=== PATIENT | female | born 1935 | race Caucasian/White ===

== ENCOUNTER → 2018-08-05 | Outpatient (CLI) | payer MEDICARE ==
--- NOTE | 2018-08-05 12:59 | PCVCIMAG ---
APPROVED REPORT Indications Stenosis Risk Factors Hypertension: Hyperlipidemia Doppler Spectral Velocity Analysis PSV / EDVPSV / EDV ECA (R) 68 / 6 cm/sECA (L) 81 / 12 cm/s dICA (R) 70 / 22 cm/sdICA (L) 73 / 26 cm/s Gaby (R) 68 / 21 cm/smICA (L) 68 / 23 cm/s pICA (R) 78 / 25 cm/spICA (L) 91 / 17 cm/s Bulb (R) 61 / 19 cm/sBulb (L) 57 / 17 cm/s dCCA (R) 62 / 14 cm/sdCCA (L) 68 / 18 cm/s mCCA (R) 66 / 13 cm/smCCA (L) 61 / 16 cm/s Vert (R) 49 / 14 cm/sVert (L) 51 / 16 cm/s ICA/CCA 1.34 ICA/CCA 1.18 Basic Measurements Blood Pressure: Pulses: Right Left RightLeft Brachial(Sitting) 122/37kbHj494/72mmHgTemporal Real Time B-Mode Imaging Vert. (R)AntegradeVert. (L)Antegrade Findings The right carotid bulb has moderate calcified plaque. The right proximal internal carotid artery shows <40% stenosis. The right common carotid artery shows no significant stenosis. The right external carotid artery shows no significant stenosis. The left carotid bulb has moderate heterogeneous plaque. The left proximal internal carotid artery shows <40% stenosis. The left common carotid artery shows no significant stenosis. The left external carotid artery shows no significant stenosis. Conclusion 1. Right internal carotid artery stenosis (<40%) 2. Left internal carotid artery stenosis (<40%) 3. Antegrade vertebral flow
--- NOTE | 2018-08-05 15:53 | PCVCIMAG ---
APPROVED REPORT Study performed: 08/05/2018 13:59:02 EXAM: Comprehensive 2D, Doppler, and color-flow Echocardiogram Patient Location: Echo lab Status: routine BSA: 1.82 HR: 66 bpmBP: 128/80 mmHg Rhythm: NSR Other Information Study Quality: Technically Limited Risk Factors: Cardiac Risk Factors: HTN, Hyperlipidemia, DM Indications CAD CABG, Hyperlipidemia, Renal failure, Colon cancer 2D Dimensions IVSd: 10.13 (7-11mm)LVOT Diam: 20.48 (18-24mm) LVDd: 40.40 mm PWd: 9.97 (7-11mm)Ascending Ao: 41.42 (22-36mm) LVDs: 29.60 (25-40mm) Left Atrium: 40.52 (27-40mm) Aortic Root: 33.38 mm Volumes Left Atrial Volume (Systole) Single Plane 4CH: 17.98 mLSingle Plane 2CH: 14.66 mL LA ESV Index: 10.00 mL/m2 Aortic Valve AoV Peak Lew.: 1.59 m/s AO Peak Gr.: 8.33 mmHgLVOT Max P.19 mmHg AO Mean Gr.: 5.67 mmHgLVOT Mean P.57 mmHg AO V2 Mean: 1.12 m/sLVOT Max V: 1.03 m/s AO V2 VTI: 30.68 cm KASSIDY (VTI): 2.15 me9PWLL V1 VTI: 20.06 cm KASSIDY Vmax: 2.13 cm2 AI Vmax: 5.14 m/s AI [place]: 3.93 m/s2 AI PHT: 378.90 ms Mitral Valve E/A Ratio: 0.9 MV Decel. Time: 238.18 ms MV E Max Lew.: 0.51 m/s MV A Lew.: 0.57 m/s MV PHT: 69.07 ms IVRT: 134.95 ms TDI E/Lateral E': 8.50E/Medial E': 5.67 Medial E' Lew.: 0.09 m/s Lateral E' Lew.: 0.06 m/s Pulmonary Valve PV Peak Gr.: 3.97 mmHg Left Ventricle The left ventricle is normal size. There is normal LV segmental wall motion. There is normal left ventricular wall thickness. Left ventricular systolic function is normal. The left ventricular ejection fraction is within the normal range. LVEF is 50%. Grade I - abnormal relaxation pattern. Right Ventricle The right ventricle is normal size. The right ventricular systolic function is normal. Atria The left atrium size is normal. The right atrium size is normal. Aortic Valve The aortic valve is moderately calcified. Trace to mild aortic regurgitation. There is no aortic valvular stenosis. Mitral Valve Mild-moderate mitral annular calcification There is no mitral valve regurgitation noted. No evidence of mitral valve stenosis. Tricuspid Valve The tricuspid valve is normal in structure. There is no tricuspid valve regurgitation noted. Pulmonic Valve The pulmonary valve is normal in structure. There is no pulmonic valvular regurgitation. Great Vessels The aortic root is normal in size. The ascending aorta is borderline dilated measuring 4.1cm. IVC is normal in size and collapses >50% with inspiration. Pericardium There is no pericardial effusion. <Conclusion> Left ventricular systolic function is normal. There is normal LV segmental wall motion. LVEF is 50%. Mild diastolic dysfunction The aortic valve is moderately calcified. Trace to mild aortic regurgitation, no stenosis Mild-moderate mitral annular calcification. No mitral valve regurgitation Pulmonary artery pressure could not be reliably ascertained There is no pericardial effusion.
== END | disposition home or self-care (01) ==
LOC: PCVCIMAG 12:20
PROVIDERS: ATTEND Internal Medicine
DX: I65.23 Occlusion and stenosis of bilateral carotid arteries (principal); I25.10 Atherosclerotic heart disease of native coronary artery without angina pectoris; I12.9 Hypertensive chronic kidney disease with stage 1 through stage 4 chronic kidney disease, or unspecified chronic kidney disease; E11.22 Type 2 diabetes mellitus with diabetic chronic kidney disease; N18.3 Chronic kidney disease, stage 3 (moderate); I25.5 Ischemic cardiomyopathy; E78.5 Hyperlipidemia, unspecified; I42.9 Cardiomyopathy, unspecified; Z79.82 Long term (current) use of aspirin; Z79.4 Long term (current) use of insulin; Z79.899 Other long term (current) drug therapy
CPT/HCPCS: 80061; 93005; 93306; 93880; G0463

== ENCOUNTER → 2019-03-17 | Outpatient (CLI) | payer MEDICARE ==
[~2019-03-17] MED LIST: REGADENOSON 0.4 MG/5 ML DISP.SYRIN. IV ONE
--- NOTE | 2019-03-20 07:26 | PCVCIMAG ---
APPROVED REPORT Imaging Protocol: Rest Tc-99m/Stress Tc-99m 1 day Study performed: 03/17/2019 10:51:38 Indication: CAD, ICM Patient Location: Out-Patient Stress Nurse: Dara Masterson RN, TANYA Avila Tech:Zay KenIVONNE Ht: 5 ft 4 in Wt: 169 lbs BSA: 1.82 m2 HR: 70 bpm BP: 193/84 mmHg BMI: 29.0 Rhythm: Sinus Rhythm Medical History Medical History: Age, Hyperlipidemia, HTN, CVD, CAD, Dm Insulin Medications: ASA, Lantus, Lovastatin, Metoprolol, Demedex Allergies: No known drug allergies Previous Cardiac Procedures: CABG Exercise History: Sedentary Meds Held (24 hrs): Metoprolol Resting Data Rest SPECT myocardial perfusion imaging was performed in supine position 45 minutes following the intravenous injection of 10 mCi of Tc-99m Sestamibi. Time of rest injection: 1030 Date: 03/17/2019 Administration Route: IV Administration Site: Right Hand Pharmacologic Stress Pharmacologic stress test was performed by injecting Regadenoson 0.4 mg IV push over 10-15 seconds immediately followed by the intravenous injection of 32.2 mCi of Tc-99m Sestamibi. Time of stress injection: 1145 Date: 03/17/2019 Administration Route: IV Administration Site: Right Hand Gated Stress SPECT was performed 45 minutes after stress injection. The images were gated to evaluate regional wall motion and calculate left ventricular ejection fraction. Stress Test Details Stress Test: Pharmacologic stress testing performed using 0.4 mg of regadenoson per 5 mL given IV over 10 seconds. HRMax Heart Rate (APMHR): 137 bpm Resting HR: 70 bpmTarget HR (85% APMHR): 116 bpm Max HR Achieved: 88 bpm % of APMHR: 64 Recovery HR: 78 bpm BP Resting BP: 193/84 mmHg Max BP: 161/72 mmHg Recovery BP: 143/65 mmHg ECG Resting ECG: Sinus Rhythm, possible prior inferior infarct Stress ECG: Sinus Rhythm, possible prior inferior infarct ST Change: None Arrhythmia: PVC's Recovery ECG: Sinus Rhythm Recovery ST Change: None Recovery ST Deviation: 0 mm Recovery Arrhythmia: None Clinical Reason for Termination: Completed protocol Stress Symptoms: Abdominal discomfort Exercise duration: min 55 sec Symptoms resolved with caffeine. Stress ECG Conclusion ECG: Non-ischemic Clinical: Non-ischemic Study Quality Study: Good Study Data Post stress, the left ventricular ejection was 57%.. SSS: 7 SRS: 8 SDS: 1 TID = 0.91. Perfusion No evidence of stress induced ischemia. 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 Nuclear Conclusion No evidence of stress induced ischemia. 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 Post stress, the left ventricular ejection was 57%. No prior study available for comparison. Interpreted by: Gil Linda MD Electronically Approved: 03/17/2019 14:58:03 <Conclusion> ECG: Non-ischemic Clinical: Non-ischemic
== END | disposition home or self-care (01) ==
LOC: PCVCIMAG 09:42
PROVIDERS: ATTEND Internal Medicine
DX: I25.10 Atherosclerotic heart disease of native coronary artery without angina pectoris (principal); I10 Essential (primary) hypertension; E11.9 Type 2 diabetes mellitus without complications; E78.5 Hyperlipidemia, unspecified
CPT/HCPCS: 78452; 93017; A9500; J2785

== ENCOUNTER → 2019-08-24 | Outpatient (CLI) | payer MEDICARE ==
--- NOTE | 2019-08-24 14:08 | PCVCIMAG ---
APPROVED REPORT Indications Stenosis Risk Factors Hypertension: Hyperlipidemia Doppler Spectral Velocity Analysis PSV / EDVPSV / EDV ECA (R) 55 / 11 cm/sECA (L) 67 / 9 cm/s dICA (R) 42 / 11 cm/sdICA (L) 49 / 14 cm/s Gaby (R) 79 / 23 cm/smICA (L) 69 / 22 cm/s pICA (R) 102 / 18 cm/spICA (L) 75 / 14 cm/s Bulb (R) 55 / 11 cm/sBulb (L) 74 / 14 cm/s dCCA (R) 63 / 13 cm/sdCCA (L) 52 / 16 cm/s mCCA (R) 44 / 10 cm/smCCA (L) 52 / 17 cm/s Vert (R) 40 / 9 cm/sVert (L) 39 / 11 cm/s ICA/CCA 1.62ICA/CCA 1.44 Basic Measurements Blood Pressure: Pulses: Right Left RightLeft Brachial(Sitting) 158/62muXe70/92mmHgTemporal Real Time B-Mode Imaging Vert. (R)AntegradeVert. (L)Antegrade Findings RIGHT CAROTID: The carotid bulb has moderate plaque. The proximal internal carotid artery shows <40% stenosis. The common carotid artery shows no significant stenosis. The external carotid artery shows no significant stenosis. LEFT CAROTID: The carotid bulb has moderate plaque. The proximal internal carotid artery shows <40% stenosis. The common carotid artery shows moderate stenosis. The external carotid artery shows moderate stenosis. Conclusion <40% stenosis of the right internal carotid artery with moderate plaque. <40% stenosis of the left internal carotid artery with moderate plaque. No change since July 2018 study.
== END | disposition home or self-care (01) ==
LOC: PCVCIMAG 13:14
PROVIDERS: ATTEND Internal Medicine
DX: I65.23 Occlusion and stenosis of bilateral carotid arteries (principal); I25.10 Atherosclerotic heart disease of native coronary artery without angina pectoris; I25.5 Ischemic cardiomyopathy; E78.5 Hyperlipidemia, unspecified; I12.9 Hypertensive chronic kidney disease with stage 1 through stage 4 chronic kidney disease, or unspecified chronic kidney disease; E11.22 Type 2 diabetes mellitus with diabetic chronic kidney disease; N18.3 Chronic kidney disease, stage 3 (moderate); Z79.82 Long term (current) use of aspirin; Z79.4 Long term (current) use of insulin; Z79.899 Other long term (current) drug therapy
CPT/HCPCS: 36415; 80061; 93005; 93880; G0463